=== PATIENT | male | born 1985 | race Caucasian/White ===

== ENCOUNTER 2018-11-27 18:01 | Emergency (ER) | payer SELFPAY ==
[~2018-11-27] VITALS: Ht 180.3 cm; Wt 86.2 kg
[2018-11-27 20:14] LABS: BASO # 0.1 x10^3/uL (0.0-0.2); BASO % 1 % (0-3); EOS # 0.1 x10^3/uL (0.0-0.7); EOS % 1 % (0-3); HEMATOCRIT 43.6 % (39.0-53.0); HEMOGLOBIN 14.5 g/dL (13.0-17.5); LYMPH # 2.4 x10^3/uL (1.0-4.8); LYMPH % 32 % (24-48); MEAN CORPUSCULAR HEMOGLOBIN 30 pg (25-35); MEAN CORPUSCULAR HGB CONC 33 g/dL (31-37); MEAN CORPUSCULAR VOLUME 90 fL (79-100); MONO # 0.5 x10^3/uL (0.0-1.1); MONO % 7 % (0-9); NEUT # 4.4 x10^3uL (1.8-7.7); NEUT % 59 % (31-73); PLATELET COUNT 210 x10^3/uL (140-400); RED BLOOD COUNT 4.83 x10^6/uL (4.30-5.70); RED CELL DISTRIBUTION WIDTH 17.1 % (11.5-14.5); WHITE BLOOD COUNT 7.5 x10^3/uL (4.0-11.0)
[2018-11-27 20:25] LABS: PROTHROMBIN TIME PATIENT 24.4 SEC (11.7-14.0)
[2018-11-27 20:27] LABS: CALCIUM 9.8 mg/dL (8.5-10.1); GFR 38.7; POTASSIUM 3.1 mmol/L (3.5-5.1)
[2018-11-27 20:32] LABS: ALBUMIN 3.6 g/dL (3.4-5.0); ALBUMIN/GLOBULIN RATIO 0.8 (1.0-1.7); MAGNESIUM 2.1 mg/dL (1.8-2.4); TOTAL BILIRUBIN 1.8 mg/dL (0.2-1.0)
[2018-11-27 20:40] LABS: BILIRUBIN,URINE NEGATIVE (NEG); CLARITY,URINE CLEAR; COLOR,URINE YELLOW; NITRITE,URINE NEGATIVE (NEG); PROTEIN,URINE 30 mg/dL (NEG-TRACE)
[2018-11-27 20:47] LABS: BACTERIA,URINE 0 /HPF (0-FEW); HYALINE CASTS, URINE MODERATE /HPF; SQUAMOUS EPITHELIAL CELL,UR FEW /LPF
[2018-11-27 20:49] LABS: BARBITURATES NEG (NEG); BENZODIAZEPINES POS (NEG); CANNABINOIDS NEG (NEG); COCAINE NEG (NEG); METHADONE NEG (NEG); OPIATES NEG (NEG); PHENCYCLIDINE NEG (NEG)
[2018-11-27 20:52] LABS: AMPHETAMINE/METHAMPHETAMINE POS (NEG)
[2018-11-27 21:02] VITALS: BP 116/89
[2018-11-27] MEDS ORDERED: POTASSIUM CHLORIDE 20 MEQ TABLET.ER. PO ONE (21:15)
[2018-11-27] MEDS ORDERED: FUROSEMIDE 40 MG/4 ML VIAL. IVP ONE (21:15)
--- NOTE | 2018-11-27 22:17 | PHYS DOC ---
Past Medical History Additional Past Medical Histor: "NON CONGESTIVE HEART FAILURE" (PRAVEEN VARMA APRN) Past Surgical History: No Surgical History Additional Past Surgical Histo: PICC LINE R ARM (PRAVEEN VARMA APRN) Alcohol Use: Occasionally Drug Use: Marijuana, Opiates (PRAVEEN VARMA APRN) Adult General Chief Complaint Chief Complaint: OTHER COMPLAINTS HPI HPI 33-year-old male presents to ER via POV for complaints of chest pressure, shortness of air, generalized fatigue, leg pain bilat. and is requesting PICC line be removed in his right arm. Patient states he was at [facility] for weeks due to heart failure and had a PICC line placed which she was doing in home to be remaining infusions. Patient states his last treatment was 4-5 days ago as he was unable to get medication due to insurance reasons. Patient came to the ER as he is wanting the PICC line removed and as he wasn't getting along with the doctors at he came to this hospital for further care. Pt reports last night he took Adderall, Percocet, Xanax, and smoked marijuana. He denies alcohol use. (PRAVEEN VARMA APRN) Review of Systems Review of Systems Constitutional: Denies fever or chills. Reports generalized fatigue Eyes: Denies change in visual acuity, redness, or eye pain [] HENT: Denies nasal congestion or sore throat [] Respiratory: Reports dry cough and shortness of air Cardiovascular: Reports chest pressure GI: Denies abdominal pain, nausea, vomiting, bloody stools or diarrhea [] : Denies dysuria or hematuria [] Musculoskeletal: Denies back pain. Reports bilateral leg pain Integument: Denies rash or skin lesions [] Neurologic: Denies headache, focal weakness or sensory changes [] Endocrine: Denies polyuria or polydipsia [] All other systems were reviewed and found to be within normal limits, except as documented in this note. (PRAVEEN VARMA APRN) Current Medications Current Medications Current Medications Medications (Trade) Dose Ordered Sig/Crista Start Time Stop Time Status Last Admin Dose Admin Furosemide (Lasix) 40 mg 1X ONCE 11/27/18 21:15 11/27/18 21:16 DC 11/27/18 21:30 40 MG Potassium Chloride (Klor-Con) 40 meq 1X ONCE 11/27/18 21:15 11/27/18 21:16 DC 11/27/18 21:31 40 MEQ (SHANIQUE RIGGINS MD) Allergies Allergies Allergies Coded Allergies Type Severity Reaction Last Updated Verified Penicillins Allergy Severe ANAPHYLAXIS 11/27/18 Yes amoxicillin Allergy Severe ANAPHYLAXIS 11/27/18 Yes (SHANIQUE RIGGINS MD) Physical Exam Physical Exam Constitutional: Well developed, well nourished, mild distress-restless and anxious, non-toxic appearance. [] HENT: Normocephalic, atraumatic, bilateral external ears normal, oropharynx moist, no oral exudates, nose normal. [] Eyes: PERRLA, no nystagmus, conjunctiva normal, no discharge. [] Neck: Normal range of motion, no pedis, supple, no stridor. Trachea midline Cardiovascular: Heart rate regular rhythm, no murmur [] Lungs & Thorax: Decreased air movement throughout all lung chu with less air movement in bases. Respirations equal and slightly labored during exam. Patient speaking in full sentences Abdomen: Bowel sounds normal, soft, no tenderness, no masses, no pulsatile masses. [] Skin: Warm, dry, no erythema, no rash. [] Back: Diffuse tenderness on palpation of back without focal area-no midline spine deformity, no CVA tenderness. [] Extremities: Diffuse tenderness on palpation of bilateral lower extremities, no cyanosis, no clubbing, ROM intact, no edema. 2+ radial bilateral. 2+ dorsalis pedis/posterior tibial. Patient has PICC line proximal to right AC- there is no occlusive dressing over site. There are are abrasions at site where patient states he has been itching. No red streaking from site, abscess, or drainage. Neurologic: Alert and oriented X 3, normal motor function, normal sensory function, no focal deficits noted. [] Psychologic: Affect normal, judgement normal, mood anxious. Patient appears under the influence- twitching/restlessness in extremities (REFFITTPRAVEEN APRN) Current Patient Data Vital Signs Vital Signs Date Time Temp Pulse Resp B/P (MAP) Pulse Ox O2 Delivery O2 Flow Rate FiO2 11/27/18 21:02 112 20 116/89 (98) Nasal Cannula 2.0 11/27/18 19:20 97.7 95 97.7 (SHANIQUE RIGGINS MD) Lab Values Laboratory Tests Test 11/27/18 20:04 11/27/18 20:33 White Blood Count 7.5 x10^3/uL (4.0-11.0) Red Blood Count 4.83 x10^6/uL (4.30-5.70) Hemoglobin 14.5 g/dL (13.0-17.5) Hematocrit 43.6 % (39.0-53.0) Mean Corpuscular Volume 90 fL (79-100) Mean Corpuscular Hemoglobin 30 pg (25-35) Mean Corpuscular Hemoglobin Concent 33 g/dL (31-37) Red Cell Distribution Width 17.1 % (11.5-14.5) H Platelet Count 210 x10^3/uL (140-400) Neutrophils (%) (Auto) 59 % (31-73) Lymphocytes (%) (Auto) 32 % (24-48) Monocytes (%) (Auto) 7 % (0-9) Eosinophils (%) (Auto) 1 % (0-3) Basophils (%) (Auto) 1 % (0-3) Neutrophils # (Auto) 4.4 x10^3uL (1.8-7.7) Lymphocytes # (Auto) 2.4 x10^3/uL (1.0-4.8) Monocytes # (Auto) 0.5 x10^3/uL (0.0-1.1) Eosinophils # (Auto) 0.1 x10^3/uL (0.0-0.7) Basophils # (Auto) 0.1 x10^3/uL (0.0-0.2) Prothrombin Time 24.4 SEC (11.7-14.0) H Prothrombin Time INR 2.2 (0.8-1.1) H PTT 45 SEC (24-38) H Sodium Level 136 mmol/L (136-145) Potassium Level 3.1 mmol/L (3.5-5.1) L Chloride Level 93 mmol/L (98-107) L Carbon Dioxide Level 31 mmol/L (21-32) Anion Gap 12 (6-14) Blood Urea Nitrogen 45 mg/dL (8-26) H Creatinine 2.0 mg/dL (0.7-1.3) H Estimated GFR (Cockcroft-Gault) 38.7 BUN/Creatinine Ratio 23 (6-20) H Glucose Level 99 mg/dL (70-99) Lactic Acid Level 1.7 mmol/L (0.4-2.0) Calcium Level 9.8 mg/dL (8.5-10.1) Magnesium Level 2.1 mg/dL (1.8-2.4) Total Bilirubin 1.8 mg/dL (0.2-1.0) H Aspartate Amino Transferase (AST) 40 U/L (15-37) H Alanine Aminotransferase (ALT) 41 U/L (16-63) Alkaline Phosphatase 114 U/L (46-116) Creatine Kinase 114 U/L (39-308) Creatine Kinase MB (Mass) 2.2 ng/mL (0.0-3.6) Creatine Kinase MB Relative Index 1.9 % (0-4) Troponin I Quantitative 0.066 ng/mL (0.000-0.055) LO-Gfv-U-Type Natriuretic Peptide 6289 pg/mL (0-124) H Total Protein 8.0 g/dL (6.4-8.2) Albumin 3.6 g/dL (3.4-5.0) Albumin/Globulin Ratio 0.8 (1.0-1.7) L Ethyl Alcohol Level < 10 mg/dL (0-10) Urine Collection Type Unknown Urine Color Yellow Urine Clarity Clear Urine pH 6.0 Urine Specific [place] 1.015 Urine Protein 30 mg/dL (NEG-TRACE) Urine Glucose (UA) Negative mg/dL (NEG) Urine Ketones (Stick) Negative mg/dL (NEG) Urine Blood Negative (NEG) Urine Nitrite Negative (NEG) Urine Bilirubin Negative (NEG) Urine Urobilinogen Dipstick 1.0 mg/dL (0.2 mg/dL) Urine Leukocyte Esterase Negative (NEG) Urine RBC 1-2 /HPF (0-2) Urine WBC 1-4 /HPF (0-4) Urine Squamous Epithelial Cells Few /LPF Urine Bacteria 0 /HPF (0-FEW) Urine Hyaline Casts Moderate /HPF Urine Mucus Mod /LPF Urine Opiates Screen Neg (NEG) Urine Methadone Screen Neg (NEG) Urine Barbiturates Neg (NEG) Urine Phencyclidine Screen Neg (NEG) Urine Amphetamine/Methamphetamine Pos (NEG) Urine Benzodiazepines Screen Pos (NEG) Urine Cocaine Screen Neg (NEG) Urine Cannabinoids Screen Neg (NEG) Urine Ethyl Alcohol Neg (NEG) Laboratory Tests 11/27/18 20:04 Laboratory Tests 11/27/18 20:04 Microbiology 11/27/18 Blood Culture - Final, Complete NO GROWTH AFTER 5 DAYS (SHANIQUE RIGGINS MD) EKG EKG EKG obtained 11/27/18 at [address] Riggins Sinus tachycardia Left atrial abnormality Left axis deviation She's had a hole mother year before the Rate 113 No STEMI (PRAVEEN VARMA APRN) Radiology/Procedures Radiology/Procedures PROCEDURE: CHEST AP ONLY AP portable chest radiograph 11/27/2018 Clinical History: Shortness of breath and chest pain. An AP erect portable digital radiograph of the chest was obtained. No previous studies are available for comparison. The cardiac silhouette is mildly enlarged. The mediastinal silhouette is within normal limits. No acute pulmonary infiltrate is seen. No pleural effusion or pneumothorax is noted. A right arm PICC is seen. The tip extending along the expected course of the right internal jugular vein into the neck. The superior extent of this catheter is not included on this radiograph. The osseous structures are grossly intact. IMPRESSION: 1. The tip of the right arm PICC extends along the expected course of the right internal jugular vein into the right neck. The superior extent of this catheter is not included on this radiograph. 2. Mild cardiomegaly. No acute pulmonary infiltrate is seen. Electronically signed by: Jeffry Weiss MD (11/28/2018 12:13 AM) [facility] DICTATED and SIGNED BY: JEFFRY WEISS MD DATE: 11/28/18 0013 (PRAVEEN VARMA APRN) Course & Med Decision Making Course & Med Decision Making Pertinent Labs and Imaging studies reviewed. (See chart for details) During initial exam RN attempted to aspirate from PICC line with no blood return. Will have PICC line removed per patient's request. Following initial discussion and exam patient's case and plan of care was discussed with Dr. Riggins. Patient had labs, EKG, and chest x-ray obtained and discussion was had with alexy ent during initial exam that admission was advised for care and further monitoring. Patient initially was agreeable with admitting plan. When this provider went to the room to discussed test results and plans for IV Lasix and potassium patient was requesting to leave AMA. Discussion had with patient regarding his current medical condition and reasons for wanting to check out. Patient stated he wanted pain medication and that's why he came to the hospital. Patient multiple times during discussion stated he knew he was dying so he came in to the hospital so he could get pain medication. Discussed receiving a dose while in the ER however with admission additional pain medication would be at discretion of the hospitalist. Patient states this is the issue he has had at multiple other hospitals and that's why he is to leave AMA. In-depth conversation had with patient regarding severity of his medical condition and that if he left AMA he is at risk for worsening symptoms and . Patient ve rbalized understanding on risk of and states he is leaving without further treatment. Dr. Riggins was made aware that patient left AMA. (PRAVEEN VARMA APRN) Course & Med Decision Making Staff Physician Addendum: I was working in the ER during the course of this patient's visit. I was available for consultation as needed, but I was not directly involved in the care of this patient. (SHANIQUE RIGGINS MD) Dragon Disclaimer Dragon Disclaimer This electronic medical record was generated, in whole or in part, using a voice recognition dictation system. (PRAVEEN VARMA APRN) Departure Departure Impression: Primary Impression: CHF (congestive heart failure) Additional Impressions: Hypokalemia Elevated troponin Drug abuse Disposition: AGAINST MEDICAL ADVICE Referrals: NO PCP (PCP) Patient Instructions: Chest Wall Pain, Discharge Against Medical Advice, Drug Abuse and Addiction-SportsMed, Hypokalemia Additional Instructions: You have multiple reasons to be admitted however you chose to leave the hospital AGAINST MEDICAL ADVICE. Is important for you to follow-up with your primary care physician for reevaluation and further care. Avoid drug use. Problem Qualifiers Primary Impression: CHF (congestive heart failure) PRAVEEN VARMA APRN November 27, 2018 22:17 SHANIQUE RIGGINS MD December 03, 2018 14:19
--- NOTE | 2018-11-28 00:16 | RAD ---
AP portable chest radiograph 11/27/2018 Clinical History: Shortness of breath and chest pain. An AP erect portable digital radiograph of the chest was obtained. No previous studies are available for comparison. The cardiac silhouette is mildly enlarged. The mediastinal silhouette is within normal limits. No acute pulmonary infiltrate is seen. No pleural effusion or pneumothorax is noted. A right arm PICC is seen. The tip extending along the expected course of the right internal jugular vein into the neck. The superior extent of this catheter is not included on this radiograph. The osseous structures are grossly intact. IMPRESSION: 1. The tip of the right arm PICC extends along the expected course of the right internal jugular vein into the right neck. The superior extent of this catheter is not included on this radiograph. 2. Mild cardiomegaly. No acute pulmonary infiltrate is seen. Electronically signed by: Jeffry Weiss MD (11/28/2018 12:13 AM) [facility]
--- NOTE | 2018-11-28 06:35 | EKG ---
[facility] [address] [place] [address] Test Date: 2018-11-27 Test Time: 20:44:00 Pat Name: TAYLOR CLAYTON Department: Room: Gender: [employer]: MD : [id number] Requested By: PRAVEEN VARMA Order Number: [id number] Reading MD: Ryan Hutson Measurements Intervals [place] Rate: 113 P: -3 OR: 146 QRS: -38 QRSD: 114 T: 64 QT: 372 QTc: 510 Interpretive Statements SINUS TACHYCARDIA LEFT ATRIAL ABNORMALITY ABNORMAL LEFT AXIS DEVIATION T ABNORMALITY IN ANTERIOR LEADS ABNORMAL ECG Electronically Signed On 12-21-2018 11:58:46 CDT by Ryan Hutson
[2018-12-18] MEDS ORDERED: LORA2ORA7 SL (15:06)
[2018-12-18] MEDS ORDERED: MORP100S3 SL (15:06)
== END 2018-11-27 22:15 | disposition left against medical advice (07) ==
LOC: ER 18:01
DX: I50.9 Heart failure, unspecified (principal); E87.6 Hypokalemia; R79.89 Other specified abnormal findings of blood chemistry; F12.20 Cannabis dependence, uncomplicated; Z88.0 Allergy status to penicillin; Z88.1 Allergy status to other antibiotic agents
CPT/HCPCS: 36415; 71045; 80053; 80307; 81001; 82553; 83605; 83735; 83880; 84484; 85025; 85610; 85730; 87040; 93005; 96374; 99285; G0480; J1940

== ENCOUNTER 2018-12-12 07:16 | Inpatient (IN) | payer MEDICAID, SELFPAY ==
[2018-12-12] VITALS (13 sets, daily range): BP systolic 110–132; BP diastolic 68–86
[~2018-12-12] VITALS: Ht 180.3 cm; Wt 92.7 kg
--- NOTE | 2018-12-12 07:39 | PHYS DOC ---
Past Medical History Additional Past Medical Histor: "NON CONGESTIVE HEART FAILURE" Additional Past Surgical Histo: PICC LINE R ARM, bilateral chest tubes post trauma Alcohol Use: Occasionally Drug Use: Marijuana, Opiates Adult General Chief Complaint Chief Complaint: CHEST PAIN [facility] HPI Patient is a 33-year-old male, with a history of congestive heart failure, DVT and PE, as well as amphetamine and THC abuse, who presents to the emergency department acutely short of breath. The patient had apparently been treated at in the recent past, and was reportedly on a dobutamine drip for his congestive heart failure via a PICC line. He had an emergency department visit here about 2 weeks ago where he wanted his PICC line removed, and left AMA. Labs and available notes from that ER visit have been reviewed, and records have been requested . The patient reports increasing shortness of breath over the past few days. He also reports pain in his chest, somewhat worse with breathing. He reports compliance with his Xarelto, as well as his Lasix, he states he takes 180 mg twice daily. He is somewhat weak and fatigued, and does admit to using methamphetamine as recently as yesterday. Exertion worsens or shortness of breath, deep breathing worsens his chest pain. There are no alleviating or exacerbating factors to his symptoms otherwise. Review of Systems Review of Systems Constitutional: Denies fever or chills [] Eyes: Denies change in visual acuity, redness, or eye pain [] HENT: Denies nasal congestion or sore throat [] Respiratory: Reports nonproductive cough and shortness of breath [] Cardiovascular: No additional information not addressed in HPI [] GI: Denies abdominal pain, nausea, vomiting, bloody stools or diarrhea [] : Denies dysuria or hematuria [] Musculoskeletal: Denies back pain or joint pain [] Integument: Denies rash or skin lesions [] Neurologic: Denies headache, focal weakness or sensory changes [] Endocrine: Denies polyuria or polydipsia [] All other systems were reviewed and found to be within normal limits, except as documented in this note. Current Medications Current Medications Current Medications Medications (Trade) Dose Ordered Sig/Crista Start Time Stop Time Status Last Admin Dose Admin Aspirin (Children'S Aspirin) 324 mg 1X ONCE 12/12/18 08:00 12/12/18 08:01 DC 12/12/18 07:50 324 MG Diazepam (Valium) 5 mg STK-MED ONCE 12/12/18 08:40 12/12/18 08:41 DC Furosemide (Lasix) 40 mg 1X ONCE 12/12/18 07:45 12/12/18 07:46 DC 12/12/18 07:53 40 MG Lorazepam (Ativan Inj) 0.5 mg 1X ONCE 12/12/18 08:00 12/12/18 08:01 DC Allergies Allergies Allergies Coded Allergies Type Severity Reaction Last Updated Verified Penicillins Allergy Severe ANAPHYLAXIS 11/27/18 Yes amoxicillin Allergy Severe ANAPHYLAXIS 11/27/18 Yes Physical Exam Physical Exam PHYSICAL EXAM: CONSTITUTIONAL: Well developed, well nourished HEAD: normocephalic, atraumatic EENT: PERRL, EOMI. Conjunctivae normal color, sclerae non-icteric; moist mucous membranes. NECK: Supple, non-tender; no meningismus. There is mild JVD. LUNGS: The patient is tachypneic, with moderately increased work of breathing. There are mild crackles at the bases bilaterally, the upper lobes are clear. HEART: Regular tachycardia, no definite audible rub, gallop, no murmur CHEST: No deformity; non-tender ABDOMEN: The abdomen is soft, and non-tender, no masses or bruits. EXTREM: Normal ROM; no deformity, no calf tenderness. Normal pulses palpable in all extremities. There is 1+ bilateral pitting pedal edema. SKIN: No rash; no diaphoresis NEURO: Alert; normal speech and cognition; CN's grossly intact; strength grossly intact without focal deficit. BACK: No CVA TTP. Current Patient Data Vital Signs Vital Signs Date Time Temp Pulse Resp B/P (MAP) Pulse Ox O2 Delivery O2 Flow Rate FiO2 12/12/18 07:56 120 24 114/68 (83) 100 Room Air 4.0 12/12/18 07:17 97.0 97.0 Lab Values Laboratory Tests Test 12/12/18 07:35 White Blood Count 10.0 x10^3/uL (4.0-11.0) Red Blood Count 5.04 x10^6/uL (4.30-5.70) Hemoglobin 15.2 g/dL (13.0-17.5) Hematocrit 45.7 % (39.0-53.0) Mean Corpuscular Volume 91 fL (79-100) Mean Corpuscular Hemoglobin 30 pg (25-35) Mean Corpuscular Hemoglobin Concent 33 g/dL (31-37) Red Cell Distribution Width 18.5 % (11.5-14.5) H Platelet Count 267 x10^3/uL (140-400) Neutrophils (%) (Auto) 67 % (31-73) Lymphocytes (%) (Auto) 24 % (24-48) Monocytes (%) (Auto) 8 % (0-9) Eosinophils (%) (Auto) 1 % (0-3) Basophils (%) (Auto) 1 % (0-3) Neutrophils # (Auto) 6.7 x10^3uL (1.8-7.7) Lymphocytes # (Auto) 2.4 x10^3/uL (1.0-4.8) Monocytes # (Auto) 0.8 x10^3/uL (0.0-1.1) Eosinophils # (Auto) 0.1 x10^3/uL (0.0-0.7) Basophils # (Auto) 0.1 x10^3/uL (0.0-0.2) Prothrombin Time 18.9 SEC (11.7-14.0) H Prothrombin Time INR 1.6 (0.8-1.1) H O2 Saturation 98 % (92-99) Arterial Blood pH 7.57 (7.35-7.45) *H Arterial Blood pCO2 at Patient Temp 32 mmHg (35-46) L Arterial Blood pO2 at Patient Temp 122 mmHg (85-108) H Arterial Blood HCO3 29 mmol/L (21-28) H Arterial Blood Base Excess 7 mmol/L (-3-3) H FiO2 36 Sodium Level 137 mmol/L (136-145) Potassium Level 3.0 mmol/L (3.5-5.1) L Chloride Level 94 mmol/L (98-107) L Carbon Dioxide Level 33 mmol/L (21-32) H Anion Gap 10 (6-14) Blood Urea Nitrogen 25 mg/dL (8-26) Creatinine 1.6 mg/dL (0.7-1.3) H Estimated GFR (Cockcroft-Gault) 50.0 BUN/Creatinine Ratio 16 (6-20) Glucose Level 94 mg/dL (70-99) Calcium Level 9.5 mg/dL (8.5-10.1) Magnesium Level 2.1 mg/dL (1.8-2.4) Total Bilirubin 3.7 mg/dL (0.2-1.0) H Aspartate Amino Transferase (AST) 126 U/L (15-37) H Alanine Aminotransferase (ALT) 170 U/L (16-63) H Alkaline Phosphatase 122 U/L (46-116) H Troponin I Quantitative 0.084 ng/mL (0.000-0.055) JO-Lfm-L-Type Natriuretic Peptide 7747 pg/mL (0-124) H Total Protein 7.9 g/dL (6.4-8.2) Albumin 3.6 g/dL (3.4-5.0) Albumin/Globulin Ratio 0.8 (1.0-1.7) L Laboratory Tests 12/12/18 07:35 Laboratory Tests 12/12/18 07:35 EKG EKG Sinus tachycardia at a rate of 124 beats for minute, left axis deviation, probable left anterior fascicular block, left atrial enlargement. There are no acute ischemic ST/T changes. EKG is unchanged compared to EKG from 2 weeks ago.[] Radiology/Procedures Radiology/Procedures [PROCEDURE: PORTABLE CHEST 1V PORTABLE CHEST 1V History: Shortness of breath, chest pain for 3 days worse today Comparison: November 27, 2018 Findings: Single view of the chest is submitted. Previously seen right upper extremity PICC is not identified on this exam, some tubing in this region. Pericardial cardiac silhouette is again enlarged. There is now mild hazy bibasilar airspace opacity. There is no pneumothorax or significant pleural fluid. Impression: 1. There is again enlargement of the pericardial cardiac silhouette. There is some hazy bibasilar airspace opacity which could be due to mild edema. ] PROCEDURE: ABDOMEN LTD ABDOMEN LTD History: Elevated liver function tests, right quadrant pain Comparison: None. Findings: Multiple sonographic images of the abdomen are submitted. There is no abnormality of the visualized pancreas. There is segmental visualization of the inferior vena cava. Hepatic echotexture is within normal limits, no focal hepatic lesion demonstrated. There is mild free fluid. Right lobe of the liver measured 18.3 cm longitudinal. Gallbladder is present with thickened bishop about 0.6 cm. There is some internal echogenicity may be due to sludge or small stones. Common bile duct is within normal limits at 0.5 cm. Right kidney measured 13.4 x 4.4 x 4.1 cm, no hydronephrosis. Impression: 1. There is nonspecific gallbladder wall thickening, also some internal echogenicity which may be due to sludge or small stones. Findings could be due to cholecystitis in the appropriate clinical setting although there is also mild free fluid and gallbladder wall thickening can be associated with ascites. There is no biliary ductal dilatation. Course & Med Decision Making Course & Med Decision Making Pertinent Labs and Imaging studies reviewed. (See chart for details) []8:40 AM:The patient's condition remains stable. I spoke with the hospitalist, who accepted the patient to the hospital for further evaluation and treatment. The patient refused IV Ativan, but was agreeable to by mouth Valium. CRITICAL CARE TIME: 45 Minutes, excluding any procedures and care of other patients. 9:10 AM: I have reviewed the patient's ultrasound report, he does not have any focal right upper quadrant tenderness to palpation. Although cholecystitis is on the differential, I do suspect other causes are responsible for the patient's elevated liver function tests, such as ascites, possible hepatitis given his history of drug use, as well as possible liver congestion and CHF. I will discuss this with the hospitalist and surgical consultation might be obtained, although the patient is an extremely high surgical risk. Dragon Disclaimer Dragon Disclaimer This electronic medical record was generated, in whole or in part, using a voice recognition dictation system. Departure Departure Impression: Primary Impression: CHF (congestive heart failure) Additional Impressions: Dyspnea Amphetamine abuse Disposition: ADMITTED INPATIENT Admitting Physician: Other (Riffel) Condition: GUARDED Referrals: NO PCP (PCP) Problem Qualifiers DIAMANTE VASQUEZ MD December 12, 2018 07:39
[2018-12-12] MEDS ORDERED: FUROSEMIDE 40 MG/4 ML VIAL. IVP ONE (07:45)
[2018-12-12 07:46] LABS: BASO # 0.1 x10^3/uL (0.0-0.2); BASO % 1 % (0-3); EOS # 0.1 x10^3/uL (0.0-0.7); EOS % 1 % (0-3); HEMATOCRIT 45.7 % (39.0-53.0); HEMOGLOBIN 15.2 g/dL (13.0-17.5); LYMPH # 2.4 x10^3/uL (1.0-4.8); LYMPH % 24 % (24-48); MEAN CORPUSCULAR HEMOGLOBIN 30 pg (25-35); MEAN CORPUSCULAR HGB CONC 33 g/dL (31-37); MEAN CORPUSCULAR VOLUME 91 fL (79-100); MONO # 0.8 x10^3/uL (0.0-1.1); MONO % 8 % (0-9); NEUT # 6.7 x10^3uL (1.8-7.7); NEUT % 67 % (31-73); PLATELET COUNT 267 x10^3/uL (140-400); RED BLOOD COUNT 5.04 x10^6/uL (4.30-5.70); RED CELL DISTRIBUTION WIDTH 18.5 % (11.5-14.5)
[2018-12-12 07:47] LABS: BASE EXCESS ABG 7 mmol/L (-3-3); HCO3 ABG 29 mmol/L (21-28); PCO2 ABG 32 mmHg (35-46); PO2 ABG 122 mmHg (85-108); SAT O2 ABG 98 % (92-99)
[2018-12-12 07:48] LABS: FIO2 ABG 36
[2018-12-12 07:56] LABS: PROTHROMBIN TIME PATIENT 18.9 SEC (11.7-14.0)
[2018-12-12] MEDS ORDERED: ASPIRIN CHEWABLE 81 MG TABLET. PO ONE (08:00)
--- NOTE | 2018-12-12 08:05 | RAD ---
PORTABLE CHEST 1V History: Shortness of breath, chest pain for 3 days worse today Comparison: November 27, 2018 Findings: Single view of the chest is submitted. Previously seen right upper extremity PICC is not identified on this exam, some tubing in this region. Pericardial cardiac silhouette is again enlarged. There is now mild hazy bibasilar airspace opacity. There is no pneumothorax or significant pleural fluid. Impression: 1. There is again enlargement of the pericardial cardiac silhouette. There is some hazy bibasilar airspace opacity which could be due to mild edema. Electronically signed by: Rustam Horton MD (12/12/2018 8:02 AM) [id number]
[2018-12-12 08:07] LABS: ALBUMIN 3.6 g/dL (3.4-5.0); ALBUMIN/GLOBULIN RATIO 0.8 (1.0-1.7); CALCIUM 9.5 mg/dL (8.5-10.1); CREATININE 1.6 mg/dL (0.7-1.3); MAGNESIUM 2.1 mg/dL (1.8-2.4); TOTAL BILIRUBIN 3.7 mg/dL (0.2-1.0); TOTAL PROTEIN 7.9 g/dL (6.4-8.2)
[2018-12-12] MEDS ORDERED: diazePAM 5 MG TABLET ONE (08:40)
[2018-12-12] MEDS ORDERED: diazePAM 5 MG TABLET PO ONE (08:45)
--- NOTE | 2018-12-12 08:58 | RAD ---
ABDOMEN LTD History: Elevated liver function tests, right quadrant pain Comparison: None. Findings: Multiple sonographic images of the abdomen are submitted. There is no abnormality of the visualized pancreas. There is segmental visualization of the inferior vena cava. Hepatic echotexture is within normal limits, no focal hepatic lesion demonstrated. There is mild free fluid. Right lobe of the liver measured 18.3 cm longitudinal. Gallbladder is present with thickened bishop about 0.6 cm. There is some internal echogenicity may be due to sludge or small stones. Common bile duct is within normal limits at 0.5 cm. Right kidney measured 13.4 x 4.4 x 4.1 cm, no hydronephrosis. Impression: 1. There is nonspecific gallbladder wall thickening, also some internal echogenicity which may be due to sludge or small stones. Findings could be due to cholecystitis in the appropriate clinical setting although there is also mild free fluid and gallbladder wall thickening can be associated with ascites. There is no biliary ductal dilatation. Electronically signed by: Rustam Horton MD (12/12/2018 8:54 AM) [id number]
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
--- NOTE | 2018-12-12 10:10 | EKG ---
[facility] [address] [place] [address] Test Date: 2018-12-12 Test Time: 07:22:55 Pat Name: TAYLOR CLAYTON Department: Room: Gender: M Slitting Machine Operator: : [id number] Requested By: DIAMANTE VASQUEZ Order Number: [id number] Reading MD: Measurements Intervals [place] Rate: 124 P: -121 SD: 96 QRS: -44 QRSD: 108 T: 64 QT: 352 QTc: 510 Interpretive Statements SUPRAVENTRICULAR RHYTHM ABNORMAL LEFT AXIS DEVIATION LEFT ANTERIOR FASCICULAR BLOCK QRS(T) CONTOUR ABNORMALITY CONSIDER ANTEROSEPTAL MYOCARDIAL DAMAGE T ABNORMALITY IN ANTERIOR LEADS ABNORMAL ECG RI6.01 Unconfirmed report No previous ECG available for comparison
[2018-12-12] MEDS ORDERED: LACTULOSE 20 GM/30 ML SOLUTION. PO PRN (11:00)
[2018-12-12] MEDS ORDERED: TEMAZEPAM 7.5 MG CAPSULE PO PRN (11:00)
[2018-12-12] MEDS ORDERED: ONDANSETRON PF 4 MG/2 ML VIAL. IV PRN (11:00)
[2018-12-12] MEDS ORDERED: ACETAMINOPHEN 325 MG TABLET. PO PRN (11:00)
[2018-12-12] MEDS ORDERED: THIA100T43 PO (11:08)
[2018-12-12] MEDS ORDERED: LOSA25TA PO (11:08)
[2018-12-12] MEDS ORDERED: FURO40TA4 PO (11:08)
[2018-12-12] MEDS ORDERED: POTA10TA17 PO (11:08)
[2018-12-12] MEDS ORDERED: METO5TAB4 PO (11:08)
[2018-12-12] MEDS ORDERED: RIVA20TA2 PO (11:08)
[2018-12-12] MEDS ORDERED: FOLI1TAB16 PO (11:08)
[2018-12-12] MEDS ORDERED: POTASSIUM CHLORIDE 20 MEQ TABLET.ER. PO ONE (11:30)
[2018-12-12] MEDS: PANTOPRAZOLE 40 MG TABLET.DR. PO SCH (11:38)
[2018-12-12] MEDS: THIAMINE 100 MG TABLET. PO SCH (11:38)
[2018-12-12] MEDS: SENNOSIDES/DOCUSATE 8.6/50MG TABLET. PO SCH ×2 (11:38→21:05)
[2018-12-12] MEDS: FOLIC ACID 1 MG TABLET. PO SCH (11:38)
[2018-12-12] MEDS: LOSARTAN POTASSIUM 25 MG TABLET. PO SCH (11:38)
[2018-12-12] MEDS: MORPHINE SULFATE 2 MG/ML VIAL. IV PRN ×2 (11:43→22:20)
[2018-12-12] MEDS ORDERED: LIDO:MAALOX 1:1 20 ML SINGLE DOSE. SWSW ONE (12:00)
--- NOTE | 2018-12-12 12:10 | PDOC2 ---
CRISTI HARRINGTON MATRIX REPAIRER 12/12/18 1210: CARDIAC CONSULT DATE OF CONSULT Date of Consult DATE: 12/12/18 TIME: 11:55 REASON FOR CONSULT Reason for Consult: CHF Dyspnea REFERRING PHYSICIAN Referring Physician: Dr. Castillo HISTORY OF PRESENT ILLNESS HISTORY OF PRESENT ILLNESS This is a 33 yo male with a history of severe NICM previously followed by heart failure clinic, who presented secondary to shortness of breath and generalized fluid retention. Has been more short of breath for the last couple of weeks. Significantly worse the last couple of days. Associated with orthopea and significant LE edmea, which has improved since admission. No CP, palpitations, dizziness, or N/V. Patient has cardiac history significant for severe NICM with an EF of 15% (diagnosed last year at [facility]). Underwent further workup with cardiac catheterization 04/2018, which showed normal coronaries. Has long-standing history of methamphetamine and marijuana use. Has had multiple admissions recently at for acute decompensated HF. Followed with HF clinic and was initiated on dobutamine therapy at 3mcg/kg/min. Had echo 10/22/18, which was notable for moderate sized mobile mass protruding from IVC/RA junction; presumed to be a thrombus and OAC was initiated. Unfortunately due to ongoing drug use, despite signing agreement to abstain from drug use, infusion supply company would no longer provide Dobutamine infusion past 11/24/18. Has been deemed not to be a candidate for advanced therapies due to persistent polysubstance abuse. Has been in contact with palliative care/Hospice. He quit following up with HF clinic following discontinuation of inotropic support. Reports last using methamphetamines yesterday. PAST MEDICAL HISTORY Cardiovascular: CHF (Severe NICM LVEF 15%), HTN, Other (RA thrombus on OAC) Pulmonary: No pertinent hx CENTRAL NERVOUS SYSTEM: Other (no pertinent hx) Heme/Onc: Other (DVT, s/p IVC) Psych: Anxiety, Addictions (meth), Depression Rheumatologic: No pertinent hx Infectious disease: No pertinent hx ENT: No pertinent hx Renal/: Chronic renal insuff Endocrine: No pertinent hx Dermatology: No pertinent hx PAST SURGICAL HISTORY Past Surgical History: No pertinent history FAMILY HISTORY Family History: Heart Disease SOCIAL HISTORY Smoke: <1 pack per day ALCOHOL: none Drugs: Marijuana, Crystal meth Lives: Friends CURRENT MEDICATIONS CURRENT MEDICATIONS Current Medications Medications (Trade) Dose Ordered Sig/Crista Route PRN Reason Start Time Stop Time Status Last Admin Dose Admin Aspirin (Children'S Aspirin) 324 mg 1X ONCE PO 12/12/18 08:00 12/12/18 08:01 DC 12/12/18 07:50 Furosemide (Lasix) 40 mg 1X ONCE IVP 12/12/18 07:45 12/12/18 07:46 DC 12/12/18 07:53 Diazepam (Valium) 5 mg 1X ONCE PO 12/12/18 08:45 12/12/18 08:46 DC 12/12/18 08:41 Potassium Chloride (Klor-Con) 40 meq 1X ONCE PO 12/12/18 11:30 12/12/18 11:31 DC 12/12/18 11:39 Morphine Sulfate (Morphine Sulfate) 2 mg PRN Q6HRS PRN IV PAIN 12/12/18 11:00 12/12/18 11:43 Senna/Docusate Sodium (Senna Plus) 1 tab BID PO 12/12/18 12:00 12/12/18 11:38 Multi-Ingredient Mouthwash/Gargle (Gi Cocktail) 20 ml 1X ONCE SWSW 12/12/18 12:00 12/12/18 12:01 12/12/18 11:39 Pantoprazole Sodium (Protonix) 40 mg DAILYAC PO 12/12/18 12:00 12/12/18 11:38 Folic Acid (Folic Acid) 1 mg DAILY PO 12/12/18 12:00 12/12/18 11:38 Losartan Potassium (Cozaar) 12.5 mg DAILY PO 12/12/18 12:00 12/12/18 11:38 Thiamine Mononitrate (Vitamin B-1) 100 mg DAILY PO 12/12/18 12:00 12/12/18 11:38 ALLERGIES ALLERGIES: Coded Allergies: Penicillins (Verified Allergy, Severe, ANAPHYLAXIS, 11/27/18) amoxicillin (Verified Allergy, Severe, ANAPHYLAXIS, 11/27/18) ROS Review of System 14 point ROS conducted with pertinent positives noted above in HPI. PHYSICAL EXAM General: Alert, Oriented X3, Cooperative, mild distress HEENT: Atraumatic, Mucous membr. moist/pink Lungs: Other (diminished bases, tachypneic ) Heart: Normal S1, Normal S2, Other (ST, 2/6 systolic murmur ) Abdomen: Soft, Other (ascites) Extremities: Other (1+ bilateral LE edmea, anasarca) Skin: No significant lesion Neuro: Sensation intact Psych/Mental Status: Mental status NL, Other (drowsy) MUSCULOSKELETAL: No deformity VITALS VITALS Vital Signs Date Time Temp Pulse Resp B/P (MAP) Pulse Ox O2 Delivery O2 Flow Rate FiO2 12/12/18 11:43 96 Nasal Cannula 2.0 12/12/18 11:38 120 113/82 12/12/18 11:00 96.0 18 96.0 LABS Lab: Laboratory Tests Test 12/12/18 07:35 White Blood Count 10.0 x10^3/uL (4.0-11.0) Red Blood Count 5.04 x10^6/uL (4.30-5.70) Hemoglobin 15.2 g/dL (13.0-17.5) Hematocrit 45.7 % (39.0-53.0) Mean Corpuscular Volume 91 fL (79-100) Mean Corpuscular Hemoglobin 30 pg (25-35) Mean Corpuscular Hemoglobin Concent 33 g/dL (31-37) Red Cell Distribution Width 18.5 % (11.5-14.5) Platelet Count 267 x10^3/uL (140-400) Neutrophils (%) (Auto) 67 % (31-73) Lymphocytes (%) (Auto) 24 % (24-48) Monocytes (%) (Auto) 8 % (0-9) Eosinophils (%) (Auto) 1 % (0-3) Basophils (%) (Auto) 1 % (0-3) Neutrophils # (Auto) 6.7 x10^3uL (1.8-7.7) Lymphocytes # (Auto) 2.4 x10^3/uL (1.0-4.8) Monocytes # (Auto) 0.8 x10^3/uL (0.0-1.1) Eosinophils # (Auto) 0.1 x10^3/uL (0.0-0.7) Basophils # (Auto) 0.1 x10^3/uL (0.0-0.2) Prothrombin Time 18.9 SEC (11.7-14.0) Prothromb Time International Ratio 1.6 (0.8-1.1) O2 Saturation 98 % (92-99) Arterial Blood pH 7.57 (7.35-7.45) Arterial Blood pCO2 at Patient Temp 32 mmHg (35-46) Arterial Blood pO2 at Patient Temp 122 mmHg (85-108) Arterial Blood HCO3 29 mmol/L (21-28) Arterial Blood Base Excess 7 mmol/L (-3-3) FiO2 36 Sodium Level 137 mmol/L (136-145) Potassium Level 3.0 mmol/L (3.5-5.1) Chloride Level 94 mmol/L (98-107) Carbon Dioxide Level 33 mmol/L (21-32) Anion Gap 10 (6-14) Blood Urea Nitrogen 25 mg/dL (8-26) Creatinine 1.6 mg/dL (0.7-1.3) Estimated GFR (Cockcroft-Gault) 50.0 BUN/Creatinine Ratio 16 (6-20) Glucose Level 94 mg/dL (70-99) Calcium Level 9.5 mg/dL (8.5-10.1) Magnesium Level 2.1 mg/dL (1.8-2.4) Total Bilirubin 3.7 mg/dL (0.2-1.0) Aspartate Amino Transf (AST/SGOT) 126 U/L (15-37) Alanine Aminotransferase (ALT/SGPT) 170 U/L (16-63) Alkaline Phosphatase 122 U/L (46-116) Troponin I Quantitative 0.084 ng/mL (0.000-0.055) PL-Rvn-B-Type Natriuretic Peptide 7747 pg/mL (0-124) Total Protein 7.9 g/dL (6.4-8.2) Albumin 3.6 g/dL (3.4-5.0) Albumin/Globulin Ratio 0.8 (1.0-1.7) ASSESSMENT/PLAN ASSESSMENT/PLAN 1. Acute respiratory failure secondary to a/c systolic HF 2. Acute on chronic systolic HF 3. Severe NICM; LVEF 15%. Followed by HF clinic. Was on dobutamine therapy, but was discontinued as [facility] would no longer supply with ongoing substance abuse. PICC line was removed 4. Elevated troponin; troponin 0.084. Most probably type II, demand ischemia 5. RA thrombus from echo 10/22/18; on Xarelto 6. Polysubstance abuse; meth and THC; last use yesterday 7. CKD 8. Transaminitis; negative for hepatitis and HIV recently at [facility] 9. H/o DVT 10. s/p IVC filter Recommendations Diuresis Inotropic support with milrinone therapy Poor prognosis. Palliative care following DANY VALERIO MD 12/12/18 2334: CARDIAC CONSULT ASSESSMENT/PLAN ASSESSMENT/PLAN Pt. seen and examined. Agree with above OVEN EQUIPMENT REPAIRER note. Spoke to patient and his sister He has no options. Continue to help with symptoms. Supportive care. Hospice would be best option. CRISTI HARRINGTON APRN December 12, 2018 12:10 DANY VALERIO MD December 12, 2018 23:34
--- NOTE | 2018-12-12 13:16 | PDOC2 ---
PALLIATIVE CARE Palliative Care Note Palliative Care Consult requested by Dr. Castillo to address goals of care. Medical Assessment per medical record; Acute on chronic systolic HF Severe NICM; LVEF 15% Elevated troponin; type II, demand ischemia RA thrombus from echo 10/22/18; on Xarelto Substance abuse; meth and THC use CKD Transaminitis H/o DVT s/p IVC filter Records from [facility] on chart. Spoke with patient and his sister Ethel Montague ([phone]) Patient lethargic, SOB. Patient is able to answer questions. Patient is DNR/DNI. Outside the Hospital DNR/DNI form signed. Discussed AD. Patient would like to name his sister Ethel his POA. Dionne MONTERO will assist with completion of AD. Patient states he "thinks he has [place] Medicaid" He requested further discussion later since has had several Health Care Providers in recently. 1415 patient lethargic. Ethel at bedside. AD --POA completed. Patient unable to participate in conversation. Plan on family meeting tomorrow at 1100 BRANDEE GUTIÉRREZ December 12, 2018 13:16
[2018-12-12] MEDS: FUROSEMIDE 40 MG/4 ML VIAL. IVP SCH (13:44)
[2018-12-12] MEDS: MILRINONE 20MG/100ML PREMIX 100 ML IV PRN (13:51)
[2018-12-12] MEDS ORDERED: HEPARIN for SUB-Q USE 5,000 UNIT/ML VIAL. SQ SCH (14:00)
[2018-12-12] MEDS ORDERED: busPIRone 10 MG TABLET. PO PRN (14:00)
[2018-12-12] MEDS: chlordiazePOXIDE HCL 25 MG CAPSULE PO PRN (14:03)
[2018-12-12] MEDS: RIVAROXABAN 10 MG TABLET. PO SCH (17:15)
[2018-12-12] MEDS: PRAMIPEXOLE 0.25 MG TABLET. PO SCH (21:05)
[2018-12-13 03:36] VITALS: BP 113/78
[2018-12-13 07:00] VITALS: BP 109/65
[2018-12-13 07:28] LABS: ALBUMIN 2.8 g/dL (3.4-5.0); ALBUMIN/GLOBULIN RATIO 0.7 (1.0-1.7); BASO % 1 % (0-3); CALCIUM 8.7 mg/dL (8.5-10.1); CREATININE 1.3 mg/dL (0.7-1.3); EOS # 0.1 x10^3/uL (0.0-0.7); EOS % 2 % (0-3); GFR 63.6; HEMATOCRIT 42.2 % (39.0-53.0); LYMPH % 26 % (24-48); MEAN CORPUSCULAR HEMOGLOBIN 30 pg (25-35); MEAN CORPUSCULAR HGB CONC 33 g/dL (31-37); MEAN CORPUSCULAR VOLUME 91 fL (79-100); MONO # 0.7 x10^3/uL (0.0-1.1); MONO % 9 % (0-9); NEUT # 4.9 x10^3uL (1.8-7.7); NEUT % 63 % (31-73); PLATELET COUNT 197 x10^3/uL (140-400); RED BLOOD COUNT 4.63 x10^6/uL (4.30-5.70); RED CELL DISTRIBUTION WIDTH 18.7 % (11.5-14.5); TOTAL BILIRUBIN 2.8 mg/dL (0.2-1.0); TOTAL PROTEIN 6.9 g/dL (6.4-8.2); WHITE BLOOD COUNT 7.9 x10^3/uL (4.0-11.0)
[2018-12-13 07:33] LABS: PROTHROMBIN TIME PATIENT 17.5 SEC (11.7-14.0)
[2018-12-13 07:35] LABS: POTASSIUM 2.8 mmol/L (3.5-5.1)
[2018-12-13] MEDS ORDERED: POTASSIUM CHLORIDE 20 MEQ TABLET.ER. PO ONE (07:45)
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
[2018-12-13] MEDS: POTASSIUM CHLORIDE 10MEQ 100 ML IV SCH ×4 (08:06→13:54)
[2018-12-13] MEDS: traMADol 50 MG TABLET PO PRN (08:10)
[2018-12-13] MEDS: FOLIC ACID 1 MG TABLET. PO SCH (08:10)
[2018-12-13] MEDS: SENNOSIDES/DOCUSATE 8.6/50MG TABLET. PO SCH ×2 (08:10→20:40)
[2018-12-13] MEDS: LOSARTAN POTASSIUM 25 MG TABLET. PO SCH (08:11)
[2018-12-13] MEDS: PANTOPRAZOLE 40 MG TABLET.DR. PO SCH (08:11)
[2018-12-13] MEDS: THIAMINE 100 MG TABLET. PO SCH (08:11)
[2018-12-13] MEDS: FUROSEMIDE 40 MG/4 ML VIAL. IVP SCH ×2 (08:12→13:55)
[2018-12-13] MEDS: MORPHINE SULFATE 2 MG/ML VIAL. IV PRN ×3 (08:46→23:07)
[2018-12-13 11:00] VITALS: BP 123/76
--- NOTE | 2018-12-13 11:43 | PDOC2 ---
PALLIATIVE CARE Palliative Care Note Palliative Care Met with patient and Carie --mother of his child. Ethel, sister did not show for meeting as planned. Patient more alert. Oriented x 3. Is able to verbalize medical information. Understands his heart is very weak and he may not live. States his only chance is to "get clean and stay clean to see if I can get on a transplant list" "I may before that though" Reviewed Hospice services. He hopes to go to a "distant relative he knows that lives in [place] where he can stay clean." He is working with his mother to [facility] Asked that this conversation be continued after he has had a chance to make these contact. Will work with to provide Hospice that serves the [place] area. Confirmed Code Status: DNR/DNI. Patient has needed Morphine 2mg IV x3 last 24 hours. "Feels less SOB than yesterday." Morphine long acting may be more beneficial--once patient has established comfort with short acting. Will discuss with BRANDEE Hoover December 13, 2018 11:43
--- NOTE | 2018-12-13 12:12 | PDOC ---
[facility]IST[facility] CONSULT[facility] 12/13/18 1212: CARDIO Progress Notes Date and Time Date of Service 12/13/18 Time of Evaluation 1120 Subjective Subjective: No Chest Pain, No Palpitations, Other (SOA better, but dyspnea persists. Fatigued) Vitals Vitals Vital Signs Date Time Temp Pulse Resp B/P (MAP) Pulse Ox O2 Delivery O2 Flow Rate FiO2 12/13/18 11:00 97.5 113 16 123/76 (92) 98 Nasal Cannula 2.0 97.5 Weight Weight [ ] Input and Output Intake and Output Intake and Output 12/13/18 06:59 Intake Total 850 ml Output Total 250 ml Balance 600 ml Intake Oral 850 ml Output Urine Total 250 ml Laboratory Labs Laboratory Tests Test 12/12/18 13:22 12/12/18 19:35 12/13/18 06:35 Troponin I Quantitative 0.092 ng/mL (0.000-0.055) 0.064 ng/mL (0.000-0.055) White Blood Count 7.9 x10^3/uL (4.0-11.0) Red Blood Count 4.63 x10^6/uL (4.30-5.70) Hemoglobin 14.0 g/dL (13.0-17.5) Hematocrit 42.2 % (39.0-53.0) Mean Corpuscular Volume 91 fL (79-100) Mean Corpuscular Hemoglobin 30 pg (25-35) Mean Corpuscular Hemoglobin Concent 33 g/dL (31-37) Red Cell Distribution Width 18.7 % (11.5-14.5) Platelet Count 197 x10^3/uL (140-400) Neutrophils (%) (Auto) 63 % (31-73) Lymphocytes (%) (Auto) 26 % (24-48) Monocytes (%) (Auto) 9 % (0-9) Eosinophils (%) (Auto) 2 % (0-3) Basophils (%) (Auto) 1 % (0-3) Neutrophils # (Auto) 4.9 x10^3uL (1.8-7.7) Lymphocytes # (Auto) 2.0 x10^3/uL (1.0-4.8) Monocytes # (Auto) 0.7 x10^3/uL (0.0-1.1) Eosinophils # (Auto) 0.1 x10^3/uL (0.0-0.7) Basophils # (Auto) 0.0 x10^3/uL (0.0-0.2) Prothrombin Time 17.5 SEC (11.7-14.0) Prothromb Time International Ratio 1.5 (0.8-1.1) Sodium Level 134 mmol/L (136-145) Potassium Level 2.8 mmol/L (3.5-5.1) Chloride Level 94 mmol/L (98-107) Carbon Dioxide Level 31 mmol/L (21-32) Anion Gap 9 (6-14) Blood Urea Nitrogen 28 mg/dL (8-26) Creatinine 1.3 mg/dL (0.7-1.3) Estimated GFR (Cockcroft-Gault) 63.6 BUN/Creatinine Ratio 22 (6-20) Glucose Level 130 mg/dL (70-99) Calcium Level 8.7 mg/dL (8.5-10.1) Magnesium Level 1.9 mg/dL (1.8-2.4) Total Bilirubin 2.8 mg/dL (0.2-1.0) Aspartate Amino Transf (AST/SGOT) 78 U/L (15-37) Alanine Aminotransferase (ALT/SGPT) 114 U/L (16-63) Alkaline Phosphatase 101 U/L (46-116) Total Protein 6.9 g/dL (6.4-8.2) Albumin 2.8 g/dL (3.4-5.0) Albumin/Globulin Ratio 0.7 (1.0-1.7) Physical Exam HEENT: Neck Supple W Full Motion Chest: Symmetric LUNGS: Other (faint bibasilar crackles) Heart: S1S2, RRR, murmurs (2/6 systolic murmur) Abdomen: Soft N/T Extremities: 2+ Dorsalis Pedis, Other (trace- 1+ bilateral LE edema ) Neurology: alert, oriented, follow commands Assessment Assessment 1. Acute respiratory failure secondary to a/c systolic HF 2. Acute on chronic systolic HF 3. Severe NICM; LVEF 15%. 4. Elevated troponin; troponin peak 0.092. Type II, demand ischemia 5. RA thrombus from echo 10/22/18; on Xarelto 6. Polysubstance abuse 7. CKD 8. Transaminitis 9. Hypokalemia; replaced Recommendations Continue Inotropic support with milrinone therapy Ongoing diuresis Accurate I and O; d/w floor care specialist following. Attempting to move with relatives in [place] so he can s joe clean DANY VALERIO MD 12/13/18 1710: CARDIO Progress Notes Plan Plan Patient seen and examined. Agree with above nurse practitioner note. CRISTI HARRINGTON APRN December 13, 2018 12:12 DANY VALERIO MD December 13, 2018 17:10
[2018-12-13] MEDS: MILRINONE 20MG/100ML PREMIX 100 ML IV PRN (12:30)
[2018-12-13] MEDS: ANTI-COAG MONITOR BY PHARMACY. MC PRN (13:51)
[2018-12-13 15:00] VITALS: BP 123/82
[2018-12-13] MEDS ORDERED: MAGNESIUM SULFATE 1GM 100 ML IV ONE (15:00)
--- NOTE | 2018-12-13 15:48 | NUR ---
SS following for discharge planning. Pt is self pay pt from home. Palliative Care meeting was held at 1100. Pt agreeable to hospice and is attempting to contact family members in [place] to see if he could stay with one of them. Pt is unsure of which county he will be going to at this time and will notify staff when he knows. SS will assist with arranging hospice in [place].
[2018-12-13] MEDS: RIVAROXABAN 10 MG TABLET. PO SCH (17:39)
[2018-12-13 19:20] VITALS: BP 118/72
[2018-12-13] MEDS: PRAMIPEXOLE 0.25 MG TABLET. PO SCH (20:40)
[2018-12-13 22:48] VITALS: BP 109/76
[2018-12-14] MEDS: traMADol 50 MG TABLET PO PRN (02:21)
[2018-12-14 03:09] VITALS: BP 117/70
[2018-12-14 03:50] LABS: BASO % 1 % (0-3); EOS # 0.1 x10^3/uL (0.0-0.7); EOS % 1 % (0-3); HEMATOCRIT 42.7 % (39.0-53.0); HEMOGLOBIN 13.7 g/dL (13.0-17.5); LYMPH # 2.1 x10^3/uL (1.0-4.8); LYMPH % 27 % (24-48); MEAN CORPUSCULAR HEMOGLOBIN 30 pg (25-35); MEAN CORPUSCULAR HGB CONC 32 g/dL (31-37); MEAN CORPUSCULAR VOLUME 92 fL (79-100); MONO # 0.6 x10^3/uL (0.0-1.1); MONO % 8 % (0-9); NEUT # 5.1 x10^3uL (1.8-7.7); NEUT % 64 % (31-73); PLATELET COUNT 217 x10^3/uL (140-400); RED BLOOD COUNT 4.66 x10^6/uL (4.30-5.70); RED CELL DISTRIBUTION WIDTH 18.5 % (11.5-14.5)
[2018-12-14 04:07] LABS: ALBUMIN/GLOBULIN RATIO 0.8 (1.0-1.7); CREATININE 1.4 mg/dL (0.7-1.3); GFR 58.4; POTASSIUM 3.8 mmol/L (3.5-5.1); TOTAL BILIRUBIN 2.4 mg/dL (0.2-1.0); TOTAL PROTEIN 6.8 g/dL (6.4-8.2)
[2018-12-14 04:09] LABS: PROTHROMBIN TIME PATIENT 30.3 SEC (11.7-14.0)
[2018-12-14 07:00] VITALS: BP 119/84
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
[2018-12-14] MEDS: THIAMINE 100 MG TABLET. PO SCH (08:28)
[2018-12-14] MEDS: PANTOPRAZOLE 40 MG TABLET.DR. PO SCH (08:28)
[2018-12-14] MEDS: SENNOSIDES/DOCUSATE 8.6/50MG TABLET. PO SCH ×2 (08:29→21:36)
[2018-12-14] MEDS: FOLIC ACID 1 MG TABLET. PO SCH (08:29)
[2018-12-14] MEDS: LOSARTAN POTASSIUM 25 MG TABLET. PO SCH (08:30)
[2018-12-14] MEDS: FUROSEMIDE 40 MG/4 ML VIAL. IVP SCH ×2 (08:31→15:29)
[2018-12-14] MEDS: MORPHINE SULFATE 2 MG/ML VIAL. IV PRN ×2 (08:52→16:36)
--- NOTE | 2018-12-14 11:02 | PDOC ---
CRISTI HARRINGTON RADIOLOGY PHYSICIAN 12/14/18 1102: CARDIO Progress Notes Date and Time Date of Service 12/14/18 Time of Evaluation 1050 Subjective Subjective: No Chest Pain, No Palpitations, Other (breathing better) Vitals Vitals Vital Signs Date Time Temp Pulse Resp B/P (MAP) Pulse Ox O2 Delivery O2 Flow Rate FiO2 12/14/18 09:22 96 Nasal Cannula 2.0 12/14/18 08:30 115 119/84 12/14/18 07:00 96.7 22 96.7 Weight Weight [ ] Input and Output Intake and Output Intake and Output 12/14/18 07:00 Intake Total 2462 ml Output Total 1251 ml Balance 1211 ml Intake Oral 2092 ml IV Total 370 ml Output Urine Total 1251 ml Laboratory Labs Laboratory Tests Test 12/14/18 02:50 White Blood Count 8.0 x10^3/uL (4.0-11.0) Red Blood Count 4.66 x10^6/uL (4.30-5.70) Hemoglobin 13.7 g/dL (13.0-17.5) Hematocrit 42.7 % (39.0-53.0) Mean Corpuscular Volume 92 fL (79-100) Mean Corpuscular Hemoglobin 30 pg (25-35) Mean Corpuscular Hemoglobin Concent 32 g/dL (31-37) Red Cell Distribution Width 18.5 % (11.5-14.5) Platelet Count 217 x10^3/uL (140-400) Neutrophils (%) (Auto) 64 % (31-73) Lymphocytes (%) (Auto) 27 % (24-48) Monocytes (%) (Auto) 8 % (0-9) Eosinophils (%) (Auto) 1 % (0-3) Basophils (%) (Auto) 1 % (0-3) Neutrophils # (Auto) 5.1 x10^3uL (1.8-7.7) Lymphocytes # (Auto) 2.1 x10^3/uL (1.0-4.8) Monocytes # (Auto) 0.6 x10^3/uL (0.0-1.1) Eosinophils # (Auto) 0.1 x10^3/uL (0.0-0.7) Basophils # (Auto) 0.0 x10^3/uL (0.0-0.2) Prothrombin Time 30.3 SEC (11.7-14.0) Prothromb Time International Ratio 2.9 (0.8-1.1) Sodium Level 134 mmol/L (136-145) Potassium Level 3.8 mmol/L (3.5-5.1) Chloride Level 94 mmol/L (98-107) Carbon Dioxide Level 33 mmol/L (21-32) Anion Gap 7 (6-14) Blood Urea Nitrogen 29 mg/dL (8-26) Creatinine 1.4 mg/dL (0.7-1.3) Estimated GFR (Cockcroft-Gault) 58.4 BUN/Creatinine Ratio 21 (6-20) Glucose Level 87 mg/dL (70-99) Calcium Level 9.0 mg/dL (8.5-10.1) Total Bilirubin 2.4 mg/dL (0.2-1.0) Aspartate Amino Transf (AST/SGOT) 70 U/L (15-37) Alanine Aminotransferase (ALT/SGPT) 111 U/L (16-63) Alkaline Phosphatase 110 U/L (46-116) Total Protein 6.8 g/dL (6.4-8.2) Albumin 3.0 g/dL (3.4-5.0) Albumin/Globulin Ratio 0.8 (1.0-1.7) Physical Exam HEENT: Neck Supple W Full Motion Chest: Symmetric LUNGS: Other (diminished bases) Heart: S1S2, RRR, murmurs (2/6 systolic murmur) Abdomen: Soft N/T Extremities: 2+ Dorsalis Pedis, Other (trace- 1+ bilateral LE edema ) Neurology: alert, oriented, follow commands Assessment Assessment 1. Acute respiratory failure secondary to a/c systolic HF 2. Acute on chronic systolic HF 3. Severe NICM; LVEF 15%. 4. Elevated troponin; troponin peak 0.092. Type II, demand ischemia 5. RA thrombus from echo 10/22/18; on Xarelto 6. Polysubstance abuse 7. CKD 8. Transaminitis Recommendations Wanting to discharge soon. Titrate off milrinone therapy Ongoing diuresis Palliative care following; plans to move to [place] with relatives with Hospice support. DANY VALERIO MD 12/14/18 3008: CARDIO Progress Notes Plan Plan Patient seen and examined. He apparently now has [place] Medicaid and can ultimately be [facility] for advanced [facility] if he is able to come off of street drugs. Agree with hospice care and transition to his family's residence in [place] and ultimately plan for further evaluation depending on his clinical course. I discussed extensively with the patient, his ex- and other clinical care providers that at this time he has very poor prognosis unless he can be supported with advanced heart failure therapies if and when he is able to be free of drug abuse. CRISTI HARRINGTON APRN December 14, 2018 11:02 DANY VALERIO MD December 14, 2018 17:18
[2018-12-14 11:22] VITALS: BP 121/76
--- NOTE | 2018-12-14 13:31 | RAD ---
Chest, 2 views, 12/14/2018: HISTORY: Congestive heart failure, shortness of breath Comparison is made to studies from 12/12/2018 and 11/27/2018. The heart is enlarged. The pulmonary vascularity is at the upper limits of normal. There is an unchanged vague opacity projected over the left chest laterally adjacent to old rib fractures. This is unchanged and likely represent scarring. There is also a small unchanged opacity in the lateral aspect of the right midlung in the region of the minor fissure. There is no evidence of pleural fluid. IMPRESSION: 1. Cardiomegaly with mild vascular congestion. 2. Unchanged peripheral opacities in both lungs may represent scarring, although active infection or a neoplastic etiology cannot be excluded. Radiographic follow-up or CT scanning is suggested. Electronically signed by: Evin Driscoll MD (12/14/2018 1:28 PM) [facility]
[2018-12-14] MEDS: ANTI-COAG MONITOR BY PHARMACY. MC PRN (13:46)
--- NOTE | 2018-12-14 14:17 | NUR ---
SS following up with discharge planning. SS met with pt to discuss hospice services and to verify address that pt will be going to at discharge. Pt reported that he will look for address and requested that SS come back later. Pt's RN present during visit.
[2018-12-14 15:00] VITALS: BP 104/70
[2018-12-14] MEDS: RIVAROXABAN 10 MG TABLET. PO SCH (16:43)
[2018-12-14 19:20] VITALS: BP 126/77
--- NOTE | 2018-12-14 20:49 | NUR ---
Per Dr. Ocampo and Dr. Castillo pt will remain on Dobutamine drip until he gets closer to discharge. Per social work waiting on patients new address to set up Hospice/Palliative Care. Pt will obtain address from family. Addendum: 12/14/18 at 2052 by SHEILA HOBBS RN update pt not on Dobutamine drip pt is on milrinone and will remain on milrinone drip until closer to discharge
[2018-12-14] MEDS: PRAMIPEXOLE 0.25 MG TABLET. PO SCH (21:36)
[2018-12-14] MEDS: MILRINONE 20MG/100ML PREMIX 100 ML IV PRN (21:39)
[2018-12-14 23:34] VITALS: BP 114/70
[2018-12-15] MEDS: MORPHINE SULFATE 2 MG/ML VIAL. IV PRN ×3 (00:29→17:39)
[2018-12-15 03:29] VITALS: BP 114/68
[2018-12-15 05:02] LABS: BASO # 0.1 x10^3/uL (0.0-0.2); BASO % 1 % (0-3); EOS # 0.1 x10^3/uL (0.0-0.7); EOS % 1 % (0-3); HEMATOCRIT 41.6 % (39.0-53.0); HEMOGLOBIN 13.4 g/dL (13.0-17.5); LYMPH # 1.7 x10^3/uL (1.0-4.8); LYMPH % 22 % (24-48); MEAN CORPUSCULAR HEMOGLOBIN 30 pg (25-35); MEAN CORPUSCULAR HGB CONC 32 g/dL (31-37); MEAN CORPUSCULAR VOLUME 92 fL (79-100); MONO # 0.6 x10^3/uL (0.0-1.1); MONO % 8 % (0-9); NEUT # 5.3 x10^3uL (1.8-7.7); NEUT % 68 % (31-73); PLATELET COUNT 209 x10^3/uL (140-400); RED BLOOD COUNT 4.53 x10^6/uL (4.30-5.70); WHITE BLOOD COUNT 7.8 x10^3/uL (4.0-11.0)
[2018-12-15 05:14] LABS: PROTHROMBIN TIME PATIENT 30.5 SEC (11.7-14.0)
[2018-12-15 05:38] LABS: ALBUMIN 2.8 g/dL (3.4-5.0); ALBUMIN/GLOBULIN RATIO 0.7 (1.0-1.7); CALCIUM 9.3 mg/dL (8.5-10.1); CREATININE 1.3 mg/dL (0.7-1.3); GFR 63.6; POTASSIUM 3.8 mmol/L (3.5-5.1); TOTAL BILIRUBIN 2.4 mg/dL (0.2-1.0); TOTAL PROTEIN 7.1 g/dL (6.4-8.2)
[2018-12-15] MEDS: PANTOPRAZOLE 40 MG TABLET.DR. PO SCH (06:26)
[2018-12-15 07:53] VITALS: BP 106/77
[2018-12-15] MEDS: FOLIC ACID 1 MG TABLET. PO SCH (08:02)
[2018-12-15] MEDS: THIAMINE 100 MG TABLET. PO SCH (08:02)
[2018-12-15] MEDS: SENNOSIDES/DOCUSATE 8.6/50MG TABLET. PO SCH ×2 (08:02→20:23)
[2018-12-15] MEDS: FUROSEMIDE 40 MG/4 ML VIAL. IVP SCH ×2 (08:03→13:51)
[2018-12-15] MEDS: LOSARTAN POTASSIUM 25 MG TABLET. PO SCH (08:03)
[2018-12-15 11:07] VITALS: BP 106/65
[2018-12-15] MEDS: ANTI-COAG MONITOR BY PHARMACY. MC PRN (11:59)
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
[2018-12-15 15:03] VITALS: BP 118/79
[2018-12-15] MEDS: RIVAROXABAN 10 MG TABLET. PO SCH (17:11)
[2018-12-15 18:46] VITALS: BP 138/90
[2018-12-15] MEDS: traMADol 50 MG TABLET PO PRN (19:35)
[2018-12-15] MEDS: PRAMIPEXOLE 0.25 MG TABLET. PO SCH (20:23)
[2018-12-15 22:54] VITALS: BP 149/90
[2018-12-16] MEDS: MORPHINE SULFATE 2 MG/ML VIAL. IV PRN ×4 (00:24→19:54)
[2018-12-16 02:51] VITALS: BP 112/83
[2018-12-16] MEDS: MILRINONE 20MG/100ML PREMIX 100 ML IV PRN (04:24)
[2018-12-16] MEDS: PANTOPRAZOLE 40 MG TABLET.DR. PO SCH (06:35)
[2018-12-16 07:00] VITALS: BP 135/90
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
[2018-12-16] MEDS: LOSARTAN POTASSIUM 25 MG TABLET. PO SCH (08:55)
[2018-12-16] MEDS: busPIRone 10 MG TABLET. PO PRN (08:55)
[2018-12-16] MEDS: THIAMINE 100 MG TABLET. PO SCH (08:55)
[2018-12-16] MEDS: SENNOSIDES/DOCUSATE 8.6/50MG TABLET. PO SCH ×2 (08:55→20:52)
[2018-12-16] MEDS: chlordiazePOXIDE HCL 25 MG CAPSULE PO PRN (08:56)
[2018-12-16] MEDS: FUROSEMIDE 40 MG/4 ML VIAL. IVP SCH ×2 (08:56→13:57)
[2018-12-16] MEDS: FOLIC ACID 1 MG TABLET. PO SCH (08:56)
[2018-12-16 10:25] LABS: ALBUMIN 2.9 g/dL (3.4-5.0); ALBUMIN/GLOBULIN RATIO 0.6 (1.0-1.7); CALCIUM 9.6 mg/dL (8.5-10.1); CREATININE 1.4 mg/dL (0.7-1.3); GFR 58.4; MAGNESIUM 1.9 mg/dL (1.8-2.4); POTASSIUM 3.8 mmol/L (3.5-5.1); TOTAL BILIRUBIN 2.6 mg/dL (0.2-1.0); TOTAL PROTEIN 7.4 g/dL (6.4-8.2)
[2018-12-16] MEDS ORDERED: METOPROLOL TARTRATE 5 MG/5 ML VIAL. IVP PRN (10:30)
[2018-12-16] MEDS: traMADol 50 MG TABLET PO PRN ×2 (10:40→17:06)
[2018-12-16] MEDS: ANTI-COAG MONITOR BY PHARMACY. MC PRN (10:49)
[2018-12-16 11:00] VITALS: BP 134/82
[2018-12-16] MEDS ORDERED: LACTULOSE 20 GM/30 ML SOLUTION. PO PRN (11:30)
--- NOTE | 2018-12-16 11:35 | NUR ---
Pt developed sudden SOB. Pt stated that he doesn't feel well. Spoke to Dr. Castillo and he ordered a stat ABG. RT notified. Dose of ativan undone because of the development of SOB.
[2018-12-16 11:47] LABS: BASE EXCESS ABG 5 mmol/L (-3-3); HCO3 ABG 28 mmol/L (21-28); PCO2 ABG 35 mmHg (35-46); PO2 ABG 70 mmHg (85-108); SAT O2 ABG 94 % (92-99)
[2018-12-16 11:55] LABS: FIO2 ABG 28%
--- NOTE | 2018-12-16 14:30 | RAD ---
Examination: Single frontal view the chest History: History of hypoxia, shortness of breath Comparison: 12/14/2018 Findings: Moderate cardiomegaly. There is mild diffuse prominent appearing bilateral interstitial lung markings likely congestive changes. Mild left lung base airspace opacity likely atelectasis or infiltrates. Left lung base airspace opacity likely atelectasis or infiltrates. Impression: 1. Mild congestive changes. 2. Left lung base airspace opacities likely atelectasis or infiltrates.
[2018-12-16 15:00] VITALS: BP 106/62
[2018-12-16] MEDS: RIVAROXABAN 10 MG TABLET. PO SCH (17:06)
[2018-12-16 19:25] VITALS: BP 151/67
[2018-12-16] MEDS: PRAMIPEXOLE 0.25 MG TABLET. PO SCH (20:52)
[2018-12-16 22:50] VITALS: BP 146/65
[2018-12-17] MEDS: MORPHINE SULFATE 2 MG/ML VIAL. IV PRN ×4 (01:20→20:42)
[2018-12-17 03:10] VITALS: BP 111/57
[2018-12-17 06:45] LABS: ALBUMIN 2.9 g/dL (3.4-5.0); ALBUMIN/GLOBULIN RATIO 0.6 (1.0-1.7); CALCIUM 9.4 mg/dL (8.5-10.1); CREATININE 1.5 mg/dL (0.7-1.3); GFR 53.9; MAGNESIUM 1.8 mg/dL (1.8-2.4); POTASSIUM 4.3 mmol/L (3.5-5.1); TOTAL BILIRUBIN 2.5 mg/dL (0.2-1.0); TOTAL PROTEIN 7.4 g/dL (6.4-8.2)
[2018-12-17 07:00] VITALS: BP 118/66
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
[2018-12-17] MEDS: FOLIC ACID 1 MG TABLET. PO SCH (08:24)
[2018-12-17] MEDS: SENNOSIDES/DOCUSATE 8.6/50MG TABLET. PO SCH ×2 (08:24→20:50)
[2018-12-17] MEDS: PANTOPRAZOLE 40 MG TABLET.DR. PO SCH (08:24)
[2018-12-17] MEDS: FUROSEMIDE 40 MG/4 ML VIAL. IVP SCH ×2 (08:24→14:36)
[2018-12-17] MEDS: THIAMINE 100 MG TABLET. PO SCH (08:24)
[2018-12-17] MEDS: LOSARTAN POTASSIUM 25 MG TABLET. PO SCH (08:25)
[2018-12-17] MEDS: busPIRone 10 MG TABLET. PO PRN ×2 (10:01→20:44)
[2018-12-17] MEDS: chlordiazePOXIDE HCL 25 MG CAPSULE PO PRN ×2 (10:12→14:37)
[2018-12-17 10:53] VITALS: BP 116/60
--- NOTE | 2018-12-17 11:00 | PDOC2 ---
PALLIATIVE CARE Palliative Care Note PALLIATIVE CARE Patient lethargic, Has received Morphine 2mg IV x3 over the previous 8 hours. Ativan x3 Complains of SOB and check discomfort. RR 32. Spoke with Ethel/sister/DPSONIA and his mother Gerri. Ethel will be here at 2pm. to discuss plan of care. 1445 Met with patient's mother Ethel Talley--sister/DPSONIA and friend Rhonda. Reviewed current medical condition; HF EF15%. increased dyspnea and chest discomfort. Patient very drowsy --has stated that he would like to "stay clean" (used Meth) and hopefully get on the heart transplant list. He would have to be where he has no access to drugs. Patient has tried to find somewhere where he could live. According to family no one is able to care for him and meet his needs. Other option discussed were Fdc with Hospice or IP Hospice House. Patient would like to continue the Milrinone. Ethel does not think patient would want a Fdc. Hospice House was discussed. [facility] to [facility]. Understand Milrinone may not be able to be given. Confirmed Code Status: patient has signed Outside the Hospital DNR/DNI form. Family supportive of his wishes. Spoke with Dionen MONTERO who will fax information. BRANDEE GUTIÉRREZ Dec 17, 2018 11:00
[2018-12-17] MEDS: MILRINONE 20MG/100ML PREMIX 100 ML IV PRN (12:19)
[2018-12-17] MEDS: traMADol 50 MG TABLET PO PRN ×2 (12:24→20:45)
--- NOTE | 2018-12-17 14:51 | NUR ---
SS following up with discharge planning. SS met with pt and mother in room to discuss discharge planning. Pt's mother notified SS that pt has no family willing to take him at this time. Palliative Care notified. Palliative Care meeting with family today to discuss options. Pt has [place] Medicaid. SS will send referrals to LTC facilities in [place] for placement with hospice if no family option available.
[2018-12-17 15:00] VITALS: BP 133/58
--- NOTE | 2018-12-17 15:37 | NUR ---
SS following up with discharge planning. SS received notification from Palliative Care RN requesting referral be sent to [facility], ; fax [phone]. SS phoned and faxed referral. SS awaiting evaluation and acceptance decision from [facility] and will proceed accordingly. Pt's RN notified.
--- NOTE | 2018-12-17 16:58 | PDOC ---
CRISTI HARRINGTON SHIPBOARD INTELLIGENCE ANALYST 12/17/18 1658: CARDIO Progress Notes Date and Time Date of Service 12/17/18 Time of Evaluation 1210 Subjective Subjective: No Chest Pain, No Palpitations, Other (short of breath, not sleeping) Vitals Vitals Vital Signs Date Time Temp Pulse Resp B/P (MAP) Pulse Ox O2 Delivery O2 Flow Rate FiO2 12/17/18 15:00 97.6 125 33 133/58 (83) 98 Nasal Cannula 3.0 97.6 Weight Weight [ ] Input and Output Intake and Output Intake and Output 12/17/18 07:00 Intake Total 1837 ml Output Total 1050 ml Balance 787 ml Intake Oral 1837 ml Output Urine Total 1050 ml Laboratory Labs Laboratory Tests Test 12/16/18 17:50 12/17/18 06:15 Troponin I Quantitative 0.055 ng/mL (0.000-0.055) Prothrombin Time 39.0 SEC (11.7-14.0) Prothromb Time International Ratio 4.0 (0.8-1.1) Sodium Level 134 mmol/L (136-145) Potassium Level 4.3 mmol/L (3.5-5.1) Chloride Level 97 mmol/L (98-107) Carbon Dioxide Level 29 mmol/L (21-32) Anion Gap 8 (6-14) Blood Urea Nitrogen 35 mg/dL (8-26) Creatinine 1.5 mg/dL (0.7-1.3) Estimated GFR (Cockcroft-Gault) 53.9 BUN/Creatinine Ratio 23 (6-20) Glucose Level 114 mg/dL (70-99) Calcium Level 9.4 mg/dL (8.5-10.1) Magnesium Level 1.8 mg/dL (1.8-2.4) Total Bilirubin 2.5 mg/dL (0.2-1.0) Aspartate Amino Transf (AST/SGOT) 49 U/L (15-37) Alanine Aminotransferase (ALT/SGPT) 70 U/L (16-63) Alkaline Phosphatase 123 U/L (46-116) Total Protein 7.4 g/dL (6.4-8.2) Albumin 2.9 g/dL (3.4-5.0) Albumin/Globulin Ratio 0.6 (1.0-1.7) Physical Exam HEENT: Neck Supple W Full Motion Chest: Symmetric LUNGS: Other (diminished bases) Heart: S1S2, RRR, murmurs (2/6 systolic murmur) Abdomen: Soft N/T Extremities: 2+ Dorsalis Pedis, Other (trace bilateral LE edema ) Neurology: alert, oriented, follow commands, other (fatigued) Assessment Assessment 1. Acute respiratory failure secondary to a/c systolic HF 2. Acute on chronic systolic HF 3. Severe NICM; LVEF 15%. 5. RA thrombus from echo 10/22/18; on Xarelto 6. Polysubstance abuse 7. BOLIVAR o CKD 8. Transaminitis, coagulopathy Recommendations Milrinone therapy ongoing Diuresis Palliative care/social work following closely. Attempting to arrange in facility Hospice for ongoing support DANY VALERIO MD 12/17/18 1727: CARDIO Progress Notes Plan Plan Pt. seen and examined. Agree with above STATE ATTORNEY note. Supportive care. Discussed poor prognosis with his mother. CRISTI HARRINGTON APRN Dec 17, 2018 16:58 DANY VALERIO MD Dec 17, 2018 17:27
[2018-12-17] MEDS: RIVAROXABAN 10 MG TABLET. PO SCH (18:17)
[2018-12-17 19:48] VITALS: BP 121/81
[2018-12-17] MEDS: PRAMIPEXOLE 0.25 MG TABLET. PO SCH (20:44)
[2018-12-17 23:15] VITALS: BP 98/72
[2018-12-18 03:10] VITALS: BP 121/81
[2018-12-18] MEDS: MORPHINE SULFATE 2 MG/ML VIAL. IV PRN ×4 (03:53→22:34)
[2018-12-18 06:21] LABS: PROTHROMBIN TIME PATIENT 37.5 SEC (11.7-14.0)
[2018-12-18 07:00] VITALS: BP 131/79
[2018-12-18] MEDS: MILRINONE 20MG/100ML PREMIX 100 ML IV PRN (07:29)
[2018-12-18] MEDS: SENNOSIDES/DOCUSATE 8.6/50MG TABLET. PO SCH ×2 (08:42→21:19)
[2018-12-18] MEDS: FOLIC ACID 1 MG TABLET. PO SCH (08:42)
[2018-12-18] MEDS: THIAMINE 100 MG TABLET. PO SCH (08:42)
[2018-12-18] MEDS: FUROSEMIDE 40 MG/4 ML VIAL. IVP SCH ×2 (08:42→14:05)
[2018-12-18] MEDS: PANTOPRAZOLE 40 MG TABLET.DR. PO SCH (08:42)
[2018-12-18] MEDS: LOSARTAN POTASSIUM 25 MG TABLET. PO SCH (08:43)
[2018-12-18 11:00] VITALS: BP 113/83
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
--- NOTE | 2018-12-18 13:57 | NUR ---
SS following up with discharge planning. Pt accepted at [facility], . [facility] reported that bed will be available tomorrow. Packet, DNR, and ambulance form on the chart. RN to call report into [phone] when bed is available.
[2018-12-18] MEDS ORDERED: MORPHINE SULFATE 20 MG/ML CONC SOLUTION. SL PRN (14:30)
[2018-12-18 15:00] VITALS: BP 130/65
[2018-12-18] MEDS ORDERED: LORA2ORA7 SL (15:06)
[2018-12-18] MEDS ORDERED: MORP100S3 SL (15:06)
--- NOTE | 2018-12-18 15:07 | SNU/HH DC ---
DISCHARGE ORDERS DISCHARGE INFORMATION: DISCHARGE DATE: Dec 19, 2018 FINAL DIAGNOSIS Problems Medical Problems: (1) Amphetamine abuse Status: Acute (2) CHF (congestive heart failure) Status: Acute (3) Dyspnea Status: Acute CONDITION ON DISCHARGE: Critical CODE STATUS: Code Status: DNR/DNI HOSPICE: HOSPICE: Yes HOSPICE EVAL & TREAT: Yes POST DISCHARGE ORDERS: ACTIVITY ORDERS: Resume previous activity WEIGHT BEARING STATUS: As tolerated DIET AFTER DISCHARGE: Cardiac CHECKS AFTER DISCHARGE: CHECKS AFTER DISCHARGE: Check blood press - daily, Check your Temp as needed TREATMENT/EQUIPMENT ORDERS: INFUSION EQUIPMENT NEEDED: IV Line RESPIRATORY EQUIPMENT NEEDED: Oxygen DISCHARGE MEDICATIONS: Home Meds Active Scripts Lorazepam (LORAZEPAM INTENSOL) 2 Mg/1 Ml Oral.conc, 2 MG SL PRN Q6HRS PRN for ANXIETY / AGITATION for 30 Days, #1 MISC Prov:ESTUARDO MARC MD 12/18/18 Morphine Sulfate (MORPHINE SULFATE) 100 Mg/5 Ml Solution, 10 MG SL PRN Q3HRS PRN for PAIN for 30 Days, #1 MISC Prov:ESTUARDO MARC MD 12/18/18 Reported Medications Losartan Potassium (COZAAR ) 25 Mg Tablet, 12.5 MG PO DAILY for HYPERTENSION, TAB 12/12/18 Rivaroxaban (XARELTO) 20 Mg Tablet, 20 MG PO DAILYWBKFT for DVT's, TAB 12/12/18 Thiamine HCl (B-1) 100 Mg Tablet, 100 MG PO DAILY for ETOH, TAB 12/12/18 Folic Acid (FOLIC ACID) 1 Mg Tablet, 1 TAB PO DAILY for ETOH, #90 TAB 1 Refill 12/12/18 Metolazone (METOLAZONE) 5 Mg Tablet, 5 MG PO QMWF for CHF, #30 TAB 0 Refills 12/12/18 Potassium Citrate (POTASSIUM CITRATE) 10 Meq Tablet.er, 40 MEQ PO QMWF for Supplement, TAB.SR 12/12/18 Furosemide (FUROSEMIDE) 40 Mg Tablet, 40 MG PO BID for CHF, TAB 12/12/18 ESTUARDO MARC MD Dec 18, 2018 15:07
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
[2018-12-18] MEDS: RIVAROXABAN 10 MG TABLET. PO SCH (17:27)
[2018-12-18 19:20] VITALS: BP 122/81
[2018-12-18] MEDS: busPIRone 10 MG TABLET. PO PRN (19:40)
[2018-12-18] MEDS: PRAMIPEXOLE 0.25 MG TABLET. PO SCH (21:19)
[2018-12-18 22:40] VITALS: BP 101/62
[2018-12-19] MEDS: LORazepam INTENSOL 2 MG/ML ORAL.CONC SL PRN ×2 (00:23→08:34)
[2018-12-19] MEDS: MILRINONE 20MG/100ML PREMIX 100 ML IV PRN (04:33)
[2018-12-19 04:37] VITALS: BP 118/80
[2018-12-19] MEDS: MORPHINE SULFATE 2 MG/ML VIAL. IV PRN (04:37)
[2018-12-19 07:14] VITALS: BP 164/85
[2018-12-19] MEDS: PANTOPRAZOLE 40 MG TABLET.DR. PO SCH (07:30)
[2018-12-19] MEDS: busPIRone 10 MG TABLET. PO PRN (08:33)
[2018-12-19] MEDS: SENNOSIDES/DOCUSATE 8.6/50MG TABLET. PO SCH (08:37)
[2018-12-19] MEDS: FOLIC ACID 1 MG TABLET. PO SCH (08:37)
[2018-12-19] MEDS: LOSARTAN POTASSIUM 25 MG TABLET. PO SCH (08:37)
[2018-12-19] MEDS: THIAMINE 100 MG TABLET. PO SCH (08:37)
[2018-12-19] MEDS: FUROSEMIDE 40 MG/4 ML VIAL. IVP SCH (09:14)
--- NOTE | 2018-12-19 10:57 | NUR ---
SS following up with discharge planning. SS received phone contact from [facility] stating that pt's sister has signed all needed consents and they are ready for pt to admit. SS arranged transportation via [facility] ambulance. Pt will discharge today and go to [facility] at 1100. Packet and ambulance form on chart. Pt's RN notified and provided with report number.
--- NOTE | 2018-12-19 11:00 | NUR ---
Discharge Note: TAYLOR CLAYTON Discharge instructions and discharge home medications reviewed with [facility] nurse and a copy given to ambulance personal upon discharge. All questions have been answered and understanding verbalized.
[2018-12-19] MEDS: ANTI-COAG MONITOR BY PHARMACY. MC PRN (11:07)
== END 2018-12-19 10:55 | disposition hospice, inpatient (51) | DRG 917 ==
LOC: ER 07:16 → 2 NORTH 08:49
PROVIDERS: ADMIT Internal Medicine; ATTEND Internal Medicine
DX: T43.621A Poisoning by amphetamines, accidental (unintentional), initial encounter (principal); J96.00 Acute respiratory failure, unspecified whether with hypoxia or hypercapnia; I50.23 Acute on chronic systolic (congestive) heart failure; N17.9 Acute kidney failure, unspecified; D68.9 Coagulation defect, unspecified; I13.0 Hypertensive heart and chronic kidney disease with heart failure and stage 1 through stage 4 chronic kidney disease, or unspecified chronic kidney disease; I24.8 Other forms of acute ischemic heart disease; I42.9 Cardiomyopathy, unspecified; R18.8 Other ascites; E87.6 Hypokalemia; F12.10 Cannabis abuse, uncomplicated; F15.10 Other stimulant abuse, uncomplicated; F17.210 Nicotine dependence, cigarettes, uncomplicated; F41.9 Anxiety disorder, unspecified; G47.00 Insomnia, unspecified; G89.29 Other chronic pain; I44.4 Left anterior fascicular block; K76.1 Chronic passive congestion of liver; N18.9 Chronic kidney disease, unspecified; Z53.20 Procedure and treatment not carried out because of patient's decision for unspecified reasons; Z76.82 Awaiting organ transplant status; Z82.49 Family history of ischemic heart disease and other diseases of the circulatory system; Z86.718 Personal history of other venous thrombosis and embolism; Z95.828 Presence of other vascular implants and grafts; Z66 Do not resuscitate; F32.9 Major depressive disorder, single episode, unspecified
CPT/HCPCS: 36415; 36600; 71045; 71046; 76705; 80053; 82805; 83735; 83880; 84443; 84484; 85025; 85610; 93005; 96374; 99406; J1940; J2060; J2260; J2270; J3475; J3480; J3490; 99291-25